=== PATIENT | female | born 1965 | race Caucasian/White ===

== ENCOUNTER 2017-03-28 17:58 | Emergency (ER) | payer BC, OTHER ==
[2017-03-28] MEDS ORDERED: ALBUTEROL SULFATE 2.5 MG/0.5 ML VIAL.NEB IH ONE ×2 (18:13→18:16)
[2017-03-28] MEDS ORDERED: predniSONE 20 MG TABLET PO ONE (18:47)
[2017-03-28 19:06] LABS: Hematocrit 43.6 % (37.0-47.0); Hemoglobin 14.9 gm/dL (12.5-16.0); Mean Corpuscular Hgb Conc 34.2 g/dl (32-36); Mean Platelet Volume 10.3 fl (6.0-9.5); Neutrophil # 6.2 K/mm3 (1.3-6.0); Neutrophil % 70.3 % (42-75.0); Platelet Count 209 K/mm3 (150-450); Red Blood Count 5.13 M/mm3 (4.2-5.4); Red Cell Distribution Width 12.6 % (11.5-14.0); White Blood Count 8.8 K/mm3 (4.0-10.5)
--- NOTE | 2017-03-28 19:07 | ERNOTE ---
Dyspnea - General Presenting Symptoms: shortness of breath Time Seen by Provider: 03/28/17 18:44 Source: patient, family Exam Limitations: no limitations - Immun/Allergies/Home Medications Immunizations: IMMUNIZATION HX Immunizations Up to Date Yes History of Influenza Vaccine No Hx Pneumococcal Vaccination No Allergies/Adverse Reactions: Allergies Sulfa (Sulfonamide Antibiotics) Adverse Reaction (Verified 03/28/17 18:10) Nausea Home Medications: HOME MEDICATIONS Albuterol Sulfate 2.5 mg IH QID #30 vial.neb 03/28/17 [Last Taken Unknown] Benzonatate [Tessalon Perle] 100 mg PO TID #20 capsule 03/28/17 [Last Taken Unknown] Doxycycline Monohydrate 100 mg PO BID #20 tablet 03/28/17 [Last Taken Unknown] Ondansetron [Zofran Odt] 4 mg PO Q6H PRN #10 tab 03/28/17 [Last Taken Unknown] predniSONE [Deltasone] 20 mg PO BID #10 tablet 03/28/17 [Last Taken Unknown] - History of Present Illness Narrative: Patient has a history of smoking and intermittent bronchitis and she started to develop some wheezing and shortness of breath over the last 24 hours and came in to try to get some relief. She rates the symptoms as moderate in severity. Severity: moderate Treatment TOWER ERECTOR: none Initiating event: Reports: upper resp illness, exposure to smoke Frequency of episodes: Reports: occassional episodes Modifying Factors - (Improves): Reports: albuterol Modifying Factors (Worsens): Reports: nothing Associated Symptoms-Dyspnea: Reports: cough, wheezing Review of Systems - Review of Systems Constitutional: Present: See HPI EYE: Present: no symptoms reported ENT: Present: nose congestion Respiratory: Present: shortness of breath, cough, wheezing Cardiology: Present: no symptoms reported Gastrointestinal/Abdominal: Present: no symptoms reported Genitourinary: Present: no symptoms reported Musculoskeletal: Present: no symptoms reported Skin: Present: no symptoms reported Neurological: Present: no symptoms reported Endocrine: Present: no symptoms reported Hematologic/Lymphatic: Present: no symptoms reported Psych: Present: no symptoms reported - Patient's Past Medical History Patient History - Medical: No pertinent hx Patient History - Cardiac/Respiratory: Hypertension Patient History - Cancer: No Hx of Cancer Patient History - Surgical Procedures: Cholecystectomy Patient History - Other: None - Social History Living Situations: home Abuse History: No History of abuse Psych History: No pertinent hx Smoking Status: Current every day smoker Have you smoked in the past 12 months: Yes Alcohol Use: none Drug Use: none - Immunizations Immunizations Up to Date: Yes Hx Pneumococcal Vaccination: No History of Influenza Vaccine: No Physical Exam - Physical Exam General Appearance: Present: wd/wn, alert, moderate distress Head Exam: Present: normal inspection Eye Exam: Normal inspection: bilateral, PERRL: bilateral Ears, Nose, Throat: Present: normal ENT inspection, H, normal pharynx Neck: Present: normal inspection, nontender Respiratory: Present: no accessory muscle use, chest nontender, wheezing, other - fine course breath sounds Cardiovascular/Chest: Present: regular rate, rhythm, no murmur, normal peripheral pulses Gastrointestinal/Abdominal: Present: normal bowel sounds, nontender, nondistended, soft, no organomegaly Rectal Exam: Present: deferred Back Exam: Present: normal inspection, normal range of motion Extremity Exam: Present: normal inspection, non-tender, no edema, normal range of motion Neurological Exam: Present: alert, oriented, normal mood/affect Skin Exam: Present: normal color, warm/dry Lymphatic Exam: Present: no adenopathy ED Progress - Results and Orders Patient's Lab Results:: I have reviewed the patient's lab results. - Vital Signs Patient's Vital Signs:: I have reviewed the patient's vital signs. Vital Signs: Vital Signs 03/28/17 18:05 Temperature 36.3 C L Pulse Rate 102 H Respiratory 16 Rate Blood Pressure 152/122 O2 Sat by Pulse 86 L Oximetry - X-Ray X-Ray #1 X-Ray: chest Interpretation: Reviewed by me - Progress/Reassessment Chief Complaint: Dyspnea Progress:: Improved Plan - Plan Plan: Patient felt better after the albuterol breathing treatment. She was told that she has bronchitis with bronchospasm and while it hasn't become full-blown COPD she was advised if she continues to smoke that is a definite possibility. She' ll be started on antibiotics and steroids, Tessalon Perles for the cough and albuterol for her husbands nebulizer machine that they can share. Departure Clinical Impression: Bronchitis, Bronchospasm - Departure Disposition: Home self-care Condition: Good Instructions: Acute Bronchitis, [id number], Bronchospasm, Adult, [id number] Referrals: Cristina Tong MD [Primary Care Provider] - Prescriptions: Albuterol Sulfate 2.5 mg IH QID #30 vial.neb Benzonatate [Tessalon Perle] 100 mg PO TID #20 capsule Doxycycline Monohydrate 100 mg PO BID #20 tablet Ondansetron [Zofran Odt] 4 mg PO Q6H PRN #10 tab PRN Reason: Nausea And Vomiting predniSONE [Deltasone] 20 mg PO BID #10 tablet
[2017-03-28 19:24] LABS: Albumin * 3.7 gm/dl (3.4-5.0); Anion Gap 12.1 mmol/L (6.8-13.8); BUN/Creatinine Ratio 17.4 (9.0-21.6); Bilirubin, Total 0.2 mg/dL (0.0-1.1); Ca. Corrected For Albumin 9.2 mg/dL (8.4-10.2); Calcium * 9.3 mg/dL (7.9-10.9); Carbon Dioxide 30.2 mmol/L (24-32.6); Potassium 3.3 mmol/L (3.4-4.6); Total Protein 7.6 gm/dL (6.2-8.2)
[2017-03-28] MEDS ORDERED: predniSONE 20 MG TABLET ONE (19:36)
[2017-03-28] MEDS ORDERED: ONDANSETRON 4 MG TAB.RAPDIS ONE (19:37)
[2017-03-28] MEDS ORDERED: ONDANSETRON 4 MG TAB.RAPDIS PO ONE (19:37)
[2017-03-28 19:46] VITALS: BP 147/95
== END 2017-03-28 19:48 | disposition home or self-care (01) ==
LOC: ER 17:58
DX: J40 Bronchitis, not specified as acute or chronic (principal); J98.01 Acute bronchospasm; F17.200 Nicotine dependence, unspecified, uncomplicated